=== PATIENT | female | born 1995 | race Caucasian/White ===

== ENCOUNTER 2018-07-17 21:57 | Outpatient (CLI) | payer BC | END 2018-07-18 01:00 | disposition home or self-care (01) | LOC: L&D 21:57 → UNDOADMOB 21:57 → OB 21:57 → L&D 07-18 01:00 → UNDODISOB 07-18 01:00 → EDSTATUS 08-10 13:08 | PROVIDERS: ATTEND Obstetrics & Gynecology | DX: O47.1 False labor at or after 37 completed weeks of gestation (principal); Z3A.37 37 weeks gestation of pregnancy | CPT/HCPCS: 59025; 99213 ==

== ENCOUNTER 2018-07-20 12:33 | Outpatient (CLI) | payer BC ==
[~2018-07-20] VITALS: Ht 161.9 cm; Wt 75.7 kg
[2018-07-20 13:02] VITALS: BP 122/72; Ht 161.9 cm; Wt 75.7 kg
== END 2018-07-20 15:40 | disposition home or self-care (01) ==
LOC: OB 12:33 → L&D 12:33 → OB 12:33 → UNDOADMOB 12:33 → UNDODISOB 15:40 → L&D 15:40 → EDSTATUS 07-25 14:53
PROVIDERS: ATTEND Obstetrics & Gynecology
DX: O47.1 False labor at or after 37 completed weeks of gestation (principal); Z3A.37 37 weeks gestation of pregnancy
CPT/HCPCS: 59025; 99213; G0378; G0379

== ENCOUNTER 2018-08-06 19:11 | Inpatient (IN) | payer BC ==
[~2018-08-06] VITALS: Ht 162.6 cm; Wt 76.2 kg
[2018-08-06] MEDS ORDERED: FAMOTIDINE(*) 20MG/50ML PREMIX 50 ML IVPB PRN (19:12)
[2018-08-06] MEDS ORDERED: OXYTOCIN 30 UNIT/D5LR 500 ML 500 ML IV PRN ×2 (19:12→19:16)
[2018-08-06] MEDS ORDERED: FLUSH 10 ML SYR IVP PRN (19:15)
[2018-08-06] MEDS ORDERED: LIDOCAINE/SOD BICARB 8.4% SYR SC PRN (19:15)
[2018-08-06] MEDS ORDERED: fentaNYL CITR 100 MCG/2 ML AMP IVP PRN (19:15)
[2018-08-06] MEDS ORDERED: TERBUTALINE SULF 1 MG/ML VIAL SUBQ PRN (19:15)
[2018-08-06] MEDS ORDERED: MISOPROSTOL 25 MCG CAP PV PRN (19:15)
[2018-08-06] MEDS ORDERED: METOCLOPRAMIDE 10 MG/2 ML SDV IVP PRN (19:15)
[2018-08-06] MEDS ORDERED: LIDOCAINE 1% LOCAL 300 MG/30ML INJ PRN (19:15)
[2018-08-06] MEDS ORDERED: DINOPROSTONE 10 MG INSERT PV ONE (19:20)
[2018-08-06] MEDS ORDERED: ZOLPIDEM TARTRATE 5 MG TAB PO PRN (20:15)
[2018-08-06] MEDS ORDERED: FAMOTIDINE 20 MG TAB PO PRN (20:15)
[2018-08-06] MEDS ORDERED: LR(*) 1000 ML BAG 1,000 ML IV SCH (20:15)
[2018-08-06] MEDS ORDERED: ACETAMINOPHEN 500 MG TAB PO PRN (20:15)
[2018-08-06] MEDS ORDERED: ONDANSETRON 4 MG/2 ML VIAL IVP PRN (20:15)
[2018-08-06] MEDS ORDERED: FAMO20TA28 PO (20:16)
[2018-08-06 20:17] LABS: PLATELET COUNT, AUTOMATED 184 K/uL (150-450)
[2018-08-06] MEDS ORDERED: PREN-127 PO (20:17)
[2018-08-06 20:20] VITALS: BP 117/72; BMI 28.8
--- NOTE | 2018-08-06 22:14 | History & Physical ---
History of Present Illness Age of Patient: 22 : 1 Para or TPAL: 0 EDC per U/S: Aug 06, 2018 Estimated Gestational Age: 40.0 Chief Complaint Labor induction History of Present Illness Presented for labor induction planned and elective. uncomplicated. Past Medical, Surgical, Family and Obstetric Histories reviewed. Please see ACOG chart. History Allergies: Coded Allergies: Penicillins (Verified Allergy, Unknown, 07/20/18) Med Rec Home Meds Reported Medications Vits W-Ca,Fe,Fa(<1MG) ( VITAMINS) 1 Each Tablet, 1 EACH PO DAILY, TAB 08/06/18 Famotidine (PEPCID) 20 Mg Tablet, 20 MG PO QDAY, #10 TAB 08/06/18 Review of Systems All Systems Reviewed/Normal: Yes, Except as Noted Exam General Exam Vital Signs Vital Signs Date Time Temp Pulse Resp B/P (MAP) Pulse Ox O2 Delivery O2 Flow Rate FiO2 08/06/18 20:20 98.4 78 16 117/72 (87) 95 Room Air General Apperance: Alert/Awake/No Acute Distress Neuro: No Gross deficits Eyes: Normal Extraocular Movement & Vison Cardiovascular: Regular Rate and Rhythm Respiratory: No Respiratory Distress, Clear to Auscultation Integumentary: Skin Intact without Lesions or Rash Psychological: Alert & Oriented X3, Appropriate Mood & Affect Cervical Dialation: 3 Cervical Effacement (%): 50 Cervical Consistency: Soft Station: -1 Presentation: Vertex Fetus Heart Tone Variabilty: Moderate FHT Accelerations: 15X15 FHT Category: I Medical Decision Making Data Points Result Diagram: 08/06/181953 VTE Prophylasis: Adult Deep Vein Thrombosis/Pulmonary: No Pharmacological Contraindicati: Pt at Low Risk for VTE Mechanical Contraindications: Pt at Low Risk for VTE 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 Expecting . DAVID RUBY MD Aug 06, 2018 22:14
[2018-08-07] MEDS ORDERED: METHYLERGONOVINE MAL 0.2MG/ML ONE (05:21)
[2018-08-07] MEDS ORDERED: GLYCERIN/WITCH HAZEL LEAF 1 PK TOP PRN (05:40)
[2018-08-07] MEDS ORDERED: APAP/HYDROCODONE 325/5 TAB PO PRN (05:40)
[2018-08-07] MEDS ORDERED: MAGNESIUM HYDROXIDE* 30ML UDCP PO PRN (05:40)
[2018-08-07] MEDS ORDERED: ACETAMINOPHEN 325 MG TAB PO PRN (05:40)
[2018-08-07] MEDS ORDERED: BENZOCAINE 20% 60 ML BTL TP PRN (05:40)
[2018-08-07] MEDS ORDERED: HYDROCORTISONE 2.5% CR 30GM TB PR PRN (05:40)
[2018-08-07] MEDS ORDERED: INFLUENZA VIRUS VAC 0.5ML SYR IM ONLY ONE (05:40)
[2018-08-07] MEDS ORDERED: LANOLIN OINT 7 GM TUBE TP PRN (05:40)
--- NOTE | 2018-08-07 05:51 | OB Delivery Note ---
Delivery Note Vaginal Delivery Type: Spont. Vaginal Delivery Delivery Date: Aug 07, 2018 Delivery Time: 05:03 Estimated Gestational Age(wks): 40.1 Delivery Anesthesia: Local Sex: Female Sever[place] Apgars: 1 Minute (9), 5 Minute (10) Repair Needed: Laceration, Periurethral Estimated Blood Loss: 500 Delivery Complications: Hemorrhage, Other (uterine atony) Notes: Presented for elective IOL at term. Was 3 cm on admission and cervidil placed. Pregressed to 5 cm by 0300 on her own and SROM at 0125, clear. Completely dilated by 0443 and delivery controlled over a periurethral laceration at 0503. Shoulders delivered spontaneously. Placenta delivered spontaneous and intact. Uterine atony and bleeding from the periurethral laceration was source of hemorrhage estimated at 500 ml. Repair with 3-0 chromic resolved bleeding from laceration site and uterotonics administered (methergine 0.2 mg IM x 1 and Cytotec 800 mcg PO x 1) slowed uterine bleeding and improved uterine tone. Aguiar catheter placed due to potential swelling and urinary complications and to monitor UO. Stable upon completion. 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
[2018-08-07] MEDS ORDERED: MISOPROSTOL 200 MCG TAB ONE (06:24)
[2018-08-07] MEDS ORDERED: LIDOCAINE 1% LOCAL 300 MG/30ML 30 ML ONE (06:25)
[2018-08-07 07:48] VITALS: BP 128/67
[2018-08-07] MEDS: FERROUS SULFATE 325 MG TAB PO SCH (08:12)
[2018-08-07] MEDS: DOCUSATE CALCIUM 240 MG CAP PO SCH ×2 (08:12→21:11)
[2018-08-07] MEDS: IBUPROFEN 800 MG TAB PO SCH ×2 (08:12→16:44)
[2018-08-07] MEDS: ONDANSETRON 4 MG ODT TABDP SL PRN (08:36)
[2018-08-07 12:42] VITALS: BP 125/71
[2018-08-07 16:19] VITALS: BP 101/56
[2018-08-07 20:05] VITALS: BP 121/69
[2018-08-07 23:20] VITALS: BP 103/53
[2018-08-08] MEDS: IBUPROFEN 800 MG TAB PO SCH ×3 (01:09→17:44)
[2018-08-08 03:45] VITALS: BP 116/60
--- NOTE | 2018-08-08 07:13 | OB/GYN Progress Note ---
OB Subjective Progress Notes Subjective Pain controlled and ambulating well. Struggling with breast feeding. GI: NEG Nausea : Voiding Well Pain: Mild OB Objective Physical Exam Vital Signs Date Time Temp Pulse Resp B/P (MAP) Pulse Ox O2 Delivery O2 Flow Rate FiO2 08/08/18 03:45 98.0 86 16 116/60 (78) 94 Room Air Intake and Output 08/08/18 07:00 Intake Total 120 ml Output Total 3550 ml Balance -3430 ml Intake Oral 120 ml Output Urine Total 3550 ml # Voids 2 General Appearance: Alert/Awake/No Acute Distress Neurological: No Gross deficits Eyes: Normal Extraocular Movement & Vison Cardiovascular: Normal Rhythm & Peripheral Pulses, Regular Rate and Rhythm Respiratory: No Respiratory Distress, Clear to Auscultation Abdomen: Soft, Non-Tender, Non-Distended, Fundus Firm, Non-Tender Integumentary: Skin Intact without Lesions or Rash Psychological: Alert & Oriented X3, Appropriate Mood & Affect Result Diagram: 08/08/18 0546 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 Home tomorrow. DAVID RUBY MD Aug 08, 2018 07:13
[2018-08-08] MEDS ORDERED: FERROUS SULFATE 325 MG TAB PO ONE (07:15)
[2018-08-08 09:18] VITALS: BP 92/54
[2018-08-08] MEDS: FERROUS SULFATE 325 MG TAB PO SCH (09:20)
[2018-08-08] MEDS: DOCUSATE CALCIUM 240 MG CAP PO SCH ×2 (09:20→21:17)
[2018-08-08] MEDS: ONDANSETRON 4 MG ODT TABDP SL PRN (12:16)
[2018-08-08 12:18] VITALS: BP 126/70
[2018-08-08 19:34] VITALS: BP 105/60
[2018-08-09] MEDS: IBUPROFEN 800 MG TAB PO SCH ×2 (00:54→09:15)
[2018-08-09 03:46] VITALS: BP 121/78
[2018-08-09 09:15] VITALS: BP 122/84
[2018-08-09] MEDS: DOCUSATE CALCIUM 240 MG CAP PO SCH (09:15)
[2018-08-09] MEDS: FERROUS SULFATE 325 MG TAB PO SCH (09:15)
[2018-08-09 10:57] VITALS: Ht 162.6 cm; Wt 76.2 kg
--- NOTE | 2018-08-09 12:59 | OB/GYN Progress Note ---
OB Subjective Progress Notes Subjective Doing well. Pain controlled and bleeding light. Voiding without difficulty. GI: NEG Nausea : Voiding Well Pain: Mild OB Objective Physical Exam Vital Signs Date Time Temp Pulse Resp B/P (MAP) Pulse Ox O2 Delivery O2 Flow Rate FiO2 08/09/18 09:15 98.8 87 18 122/84 (97) 08/09/18 03:46 95 08/08/18 19:50 Room Air Intake and Output 08/09/18 07:00 Intake Total 520 ml Balance 520 ml Intake Oral 520 ml General Appearance: Alert/Awake/No Acute Distress Neurological: No Gross deficits Eyes: Normal Extraocular Movement & Vison Cardiovascular: Normal Rhythm & Peripheral Pulses, Regular Rate and Rhythm Respiratory: No Respiratory Distress, Clear to Auscultation Abdomen: Soft, Non-Tender, Non-Distended, Fundus Firm, Non-Tender Musculoskeletal: No Weakness/Pain Extremities: No Cyanosis,Clubbing or Edema Integumentary: Skin Intact without Lesions or Rash Psychological: Alert & Oriented X3, Appropriate Mood & Affect Result Diagram: 08/08/18 0546 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 F/U at 6 weeks. Call with problems. DAVID RUBY MD Aug 09, 2018 12:59
[2018-08-09] MEDS ORDERED: IBUP800T37 PO (13:00)
--- NOTE | 2018-08-09 13:01 | OB/GYN Discharge Summary ---
Discharge Summary Reason for Hosp/Final Diag: (1) 40 weeks gestation of (2) care and examination immediately after delivery Hospital Course & Plan: Home today. F/U at 6 weeks. Call with problems. Lates Vital Signs Vital Signs Date Time Temp Pulse Resp B/P (MAP) Pulse Ox O2 Delivery O2 Flow Rate FiO2 08/09/18 09:15 98.8 87 18 122/84 (97) 08/09/18 03:46 95 08/08/18 19:50 Room Air Weight (Pounds): 168 Result Diagram: 08/08/18 0546 Condition: Improved Discharge: Home, Self Shelter Meds Reported Medications Vits W-Ca,Fe,Fa(<1MG) ( VITAMINS) 1 Each Tablet, 1 EACH PO DAILY, TAB 08/06/18 Famotidine (PEPCID) 20 Mg Tablet, 20 MG PO QDAY, #10 TAB 08/06/18 Follow up Referrals: [facility] - In 6 Weeks @ [facility] with DAVID PINEDA MD Follow up with: Dr. Pineda [phone] Follow up in: 6 wks PP or PO Discharge Diet: As Tolerates Discharge Activity: As Tolerates, No Heavy Lifting x 6 wks, No Heavy Lifting > 10lb, Pelvic Rest Copies to: DAVID PINEDA MD ; DAVID PINEDA MD Aug 09, 2018 13:01
== END 2018-08-09 13:30 | disposition home or self-care (01) | DRG 768 ==
LOC: OB 19:11 → PED 08-08 20:18
PROVIDERS: ADMIT Obstetrics & Gynecology; ATTEND Obstetrics & Gynecology
PROC: 10E0XZZ Delivery of Products of Conception, External Approach (ICD-10-PCS; principal; 2018-08-07)
PROC: 0W3R3ZZ Control Bleeding in Genitourinary Tract, Percutaneous Approach (ICD-10-PCS; 2018-08-07)
PROC: 0UQMXZZ Repair Vulva, External Approach (ICD-10-PCS; 2018-08-07)
DX: O99.52 Diseases of the respiratory system complicating childbirth (principal); D62 Acute posthemorrhagic anemia; O44.43 Low lying placenta NOS or without hemorrhage, third trimester; O90.81 Anemia of the puerperium; O71.82 Other specified trauma to perineum and vulva; O72.1 Other immediate postpartum hemorrhage; J45.909 Unspecified asthma, uncomplicated; Z3A.40 40 weeks gestation of pregnancy; Z37.0 Single live birth
CPT/HCPCS: 36415; 59025; 85025; 85027; 86850; 86900; 86901; J2001; J2210; J3010; J7120; S0119